=== PATIENT | female | born 1940 | race Caucasian/White ===

== ENCOUNTER → 2016-09-24 | Outpatient (CLI) | payer MEDICARE ==
[~2016-09-24] MED LIST: ALBU17AE4 IH; CALC-587 PO; ESCI20TA22 PO; HYDR-2164 PO; LEVO150T68 PO; MULT-543 PO; OMEP-29 PO; [UNRECOGNIZED DRUG - CODE]
== END ==
LOC: LABN.WIC 12:09
PROVIDERS: ATTEND Family Medicine
DX: N30.01 Acute cystitis with hematuria (principal)
CPT/HCPCS: 87086; 87088; 87186